=== PATIENT | female | born 1965 | race Caucasian/White ===

== ENCOUNTER 2019-10-29 21:59 | Observation (INO) ==
[2019-10-30 04:31] LABS: Basophils # 0.1 K/mcL (0.0-0.2); Basophils % 1.1 %; Eosinophils # 0.4 K/mcL (0.0-0.6); Eosinophils % 5.1 %; Hemoglobin 13.1 g/dL (11.5-15.4); Immature Granulocytes % 0.4 % (0-4); Lymphocytes # 2.2 K/mcL (0.6-4.6); Lymphocytes % 30.6 %; Mean Corpuscular HGB Conc 33.6 g/dL (31.6-35.5); Mean Corpuscular Hemoglobin 30.2 pg (28.0-33.3); Mean Corpuscular Volume 89.9 fL (83.0-100.0); Mean Platelet Volume 10.7 fL (9.4-12.4); Monocytes # 0.6 K/mcL (0.0-1.3); Monocytes % 8.8 %; Neutrophils # 3.8 K/mcL (1.6-8.9); Platelet Count 293 K/mcL (140-400); Red Blood Count 4.34 M/mcL (3.82-4.97); Red Cell Distribution Width 11.9 % (11.5-14.5); White Blood Count 7.1 K/mcL (4.3-11.1)
[2019-10-30] MEDS ORDERED: Naloxone 0.4 MG/ML INJ IVP PRN (04:36)
[2019-10-30 04:50] LABS: Troponin I < 0.03 ng/mL (< 0.04)
[2019-10-30 04:57] LABS: BUN/Creatinine Ratio 14 (6-26); Blood Urea Nitrogen 12 mg/dL (6-20); Calcium 8.9 mg/dL (8.6-10.3); Carbon Dioxide 28 mEq/L (23-29); Chloride 102 mEq/L (98-107); Glucose 90 mg/dL (70-105); Osmolality,Calculated 289 (280-300); Potassium 3.9 mEq/L (3.5-5.1); Sodium 140 mEq/L (136-145); eGFR For African Americans > 60 (> 60); eGFR For Non-African Americans > 60 (> 60)
[2019-10-30] MEDS: 0.9 % Sodium Chloride 1,000 ML IVC SCH ×2 (05:04→18:25)
[2019-10-30] MEDS: Aspirin Enteric Coated 81 MG Tablet PO SCH (16:04)
[2019-10-30] MEDS ORDERED: 0.9 % Sodium Chloride 1,000 ML IVC SCH (16:15)
[2019-10-30] MEDS ORDERED: Nitroglycerin 0.4 MG TAB.SUBL SL STA (18:15)
[2019-10-30] MEDS ORDERED: Nitroglycerin 0.4 MG TAB.SUBL SL ONE (18:15)
[2019-10-30] MEDS: *HR* Heparin 5,000 UNIT/ML VIAL SQ SCH (18:23)
[2019-10-30] MEDS ORDERED: Morphine Sulfate 2 MG/ML SYRINGE IVP ONE (18:26)
[2019-10-30] MEDS ORDERED: Aspirin 325 MG TABLET PO ONE (18:53)
[2019-10-30] MEDS ORDERED: Perflutren Lipid Microsphere 1.3 ML in 0.9 % Sodium Chloride 8.7 ML IVP ONE (22:21)
[2019-10-31 04:53] LABS: Basophils # 0.1 K/mcL (0.0-0.2); Basophils % 1.1 %; Eosinophils # 0.5 K/mcL (0.0-0.6); Eosinophils % 6.2 %; Hematocrit 38.9 % (35.3-44.9); Immature Granulocytes % 0.4 % (0-4); Mean Corpuscular HGB Conc 33.4 g/dL (31.6-35.5); Mean Corpuscular Hemoglobin 30.5 pg (28.0-33.3); Mean Corpuscular Volume 91.3 fL (83.0-100.0); Mean Platelet Volume 10.4 fL (9.4-12.4); Monocytes # 0.7 K/mcL (0.0-1.3); Monocytes % 8.8 %; Neutrophils # 4.2 K/mcL (1.6-8.9); Platelet Count 270 K/mcL (140-400); Red Blood Count 4.26 M/mcL (3.82-4.97); Red Cell Distribution Width 11.9 % (11.5-14.5); Segmented Neutrophils % 56.5 %; White Blood Count 7.5 K/mcL (4.3-11.1)
[2019-10-31 05:08] LABS: BUN/Creatinine Ratio 16 (6-26); Blood Urea Nitrogen 13 mg/dL (6-20); Calcium 8.8 mg/dL (8.6-10.3); Carbon Dioxide 26 mEq/L (23-29); Chloride 105 mEq/L (98-107); Chol/HDL Ratio 4.2 (0-4.9); Cholesterol 183 mg/dL (< 200); Glucose 94 mg/dL (70-105); HDL Cholesterol 44 mg/dL (40-59); LDL Cholesterol,Calculated 121 mg/dL (0-99); Osmolality,Calculated 288 (280-300); Potassium 4.1 mEq/L (3.5-5.1); Sodium 139 mEq/L (136-145); Triglycerides 91 mg/dL (< 150); eGFR For African Americans > 60 (> 60); eGFR For Non-African Americans > 60 (> 60)
[2019-10-31] MEDS: *HR* Heparin 5,000 UNIT/ML VIAL SQ SCH ×2 (05:27→17:36)
[2019-10-31] MEDS: Aspirin Enteric Coated 81 MG Tablet PO SCH (08:14)
[2019-10-31] MEDS ORDERED: Heparin 1,000 UNITS/500 mL 500 ML ONE (12:58)
[2019-10-31] MEDS ORDERED: *HR* Heparin 10,000 UNIT/10 ML VIAL ONE (12:58)
[2019-10-31] MEDS ORDERED: ISOVUE-370 200 ML INFUS..BTL ONE (12:59)
[2019-10-31] MEDS ORDERED: Nitroglycerin 1,000 MCG/10 ML VIAL IV ONE (12:59)
[2019-10-31] MEDS ORDERED: 0.9 % Sodium Chloride 1,000 ML ONE (12:59)
[2019-10-31] MEDS ORDERED: *HR* Midazolam HCl 2 MG/2 ML VIAL ONE (13:14)
[2019-10-31] MEDS ORDERED: *HR* FentaNYL (PF) 100 MCG/2 ML VIAL ONE (13:14)
[2019-10-31] MEDS ORDERED: Aspirin Enteric Coated 325 MG Tablet PO ONE (18:27)
[2019-11-01 02:24] LABS: Basophils # 0.1 K/mcL (0.0-0.2); Basophils % 1.1 %; Eosinophils # 0.4 K/mcL (0.0-0.6); Hematocrit 37.7 % (35.3-44.9); Immature Granulocytes % 0.3 % (0-4); Lymphocytes # 1.6 K/mcL (0.6-4.6); Lymphocytes % 21.9 %; Mean Corpuscular HGB Conc 34.5 g/dL (31.6-35.5); Mean Corpuscular Hemoglobin 30.2 pg (28.0-33.3); Mean Corpuscular Volume 87.7 fL (83.0-100.0); Mean Platelet Volume 10.5 fL (9.4-12.4); Monocytes # 0.7 K/mcL (0.0-1.3); Monocytes % 9.8 %; Neutrophils # 4.6 K/mcL (1.6-8.9); Platelet Count 274 K/mcL (140-400); Red Cell Distribution Width 11.9 % (11.5-14.5); Segmented Neutrophils % 61.9 %; White Blood Count 7.4 K/mcL (4.3-11.1)
[2019-11-01 02:43] LABS: BUN/Creatinine Ratio 14 (6-26); Blood Urea Nitrogen 13 mg/dL (6-20); Calcium 8.8 mg/dL (8.6-10.3); Carbon Dioxide 27 mEq/L (23-29); Chloride 105 mEq/L (98-107); Glucose 101 mg/dL (70-105); Osmolality,Calculated 286 (280-300); Potassium 3.8 mEq/L (3.5-5.1); Sodium 138 mEq/L (136-145); eGFR For African Americans > 60 (> 60); eGFR For Non-African Americans > 60 (> 60)
[2019-11-01] MEDS: *HR* Heparin 5,000 UNIT/ML VIAL SQ SCH (05:28)
[2019-11-01 08:14] VITALS: BP 148/84
[2019-11-01] MEDS: Aspirin Enteric Coated 81 MG Tablet PO SCH (09:24)
[2019-11-01] MEDS ORDERED: FLU Vac QV 19-20 (6Month+)/PF 0.5 ML SYRINGE IM ONE (09:54)
== END 2019-11-01 11:12 | disposition home or self-care (01) ==
LOC: 3BNU → 3NENU 10-30 02:54 → 2ANU 10-30 17:55
PROVIDERS: ADMIT Internal Medicine; ATTEND Internal Medicine